=== PATIENT | female | born 1985 | race African-American/Black ===

== ENCOUNTER 2020-01-07 07:03 | Inpatient (IN) ==
[2020-01-07] MEDS ORDERED: LACTATED RINGERS 1,000 ML IV SCH ×2 (08:00→17:30)
[2020-01-07] MEDS ORDERED: CITRIC ACID/SODIUM CITRATE 30 ML UDCUP PO ONE (08:00)
[2020-01-07] MEDS ORDERED: ceFAZolin 3,000 MG in SYRINGE 1 EACH IV ONE (08:00)
[2020-01-07] MEDS ORDERED: FAMOTIDINE 20 MG/2 ML VIAL IV ONE (08:00)
[2020-01-07] MEDS ORDERED: OXYTOCIN 10 UNIT/ML VIAL IM ONE (08:05)
[2020-01-07] MEDS ORDERED: OXYTOCIN/LR 30 UNIT/1,000 ML BAG IV ONE (08:05)
[2020-01-07] MEDS ORDERED: ONDANSETRON 4 MG/2 ML VIAL IV PRN ×2 (08:07→17:19)
[2020-01-07 08:28] LABS: Basophils % 0.4 % (0.0-0.8); Eosinophils # 0.1 10*3/uL (0.0-0.87); Eosinophils % 1.2 % (0.00-10.9); Hematocrit 37.1 VOL% (35.7-47.0); Hemoglobin 11.5 GM/DL (12.0-16.0); Immature Granulocytes % 0.4 %; Immature Granulocytes Absolute 0.02 #; Lymphocytes # 1.6 10*3/uL (1.4-4.0); Lymphocytes % 28.4 % (21.3-54.2); Mean Corpuscular Volume 92.1 FL (87-102); Mean Platelet Volume 11.9 FL (9.6-12.0); Monocytes % 7.4 % (1.7-12.7); Neutrophils % 62.2 % (38.7-73.9); Platelet Count 172 T/CUMM (130-400); Red Blood Count 4.03 MC/CUMM (3.8-5.5); Red Cell Distribution Width 13.7 % (9.3-17.3); White Blood Count 5.7 T/CUMM (4-12)
[2020-01-07] MEDS ORDERED: TRANEXAMIC ACID 1,000 MG/10 ML VIAL ONE (08:40)
[2020-01-07] MEDS ORDERED: miSOPROStoL 200 MCG TABLET ONE (08:40)
[2020-01-07] MEDS ORDERED: CARBOPROST TROMETHAMINE 250 MCG/ML AMP IM ONE (08:41)
[2020-01-07] MEDS ORDERED: METHYLERGONOVINE 0.2 MG/1 ML AMP ONE (08:41)
[2020-01-07 08:44] LABS: INR 0.9; PT Patient Result 9.9 SECS (9.8-11.9); Partial Thromboplastin Time 25.4 SECS (23.9-33.8)
[2020-01-07 08:46] LABS: Eosinophils 1 % (0-10); Lymphocytes 36 % (20-55); Segmented Neutrophils 57 % (50-85); Total Cells Counted 100
[2020-01-07 08:47] LABS: Atypical Lymphocytes Few; Hypochromasia 1+; Microcytosis Slight; Platelet Estimate Adequate
[2020-01-07 09:01] LABS: Alanine Aminotransferase 16 U/L (13-56); Albumin 2.4 G/DL (3.4-5.0); Alkaline Phosphatase 74 U/L (45-117); Aspartate Amino Transferase 16 U/L (0-37); Bilirubin,Total < 0.39 MG/DL (0.2-1.0); Blood Urea Nitrogen 6 MG/DL (7-18); Calcium 9.2 MG/DL (8.5-10.1); Estimated Glom Filtration Rate 178 ML/MIN; Glucose 86 MG/DL (74-106); Osmolality,Calculated 273.5 MOS/KG (273-304); Total Protein 6.9 G/DL (6.4-8.3); Uric Acid 4.1 MG/DL (2.6-6.0)
[2020-01-07] MEDS ORDERED: MORPHINE 10 MG/10 ML VIAL ONE (15:00)
[2020-01-07] MEDS ORDERED: PHENYLEPHRINE 1 MG/10 ML SYRINGE IV ONE (15:01)
[2020-01-07] MEDS ORDERED: fentaNYL 100 MCG/2 ML VIAL ONE (15:01)
[2020-01-07] MEDS ORDERED: MIDAZOLAM 2 MG/2 ML VIAL ONE (15:02)
[2020-01-07] MEDS ORDERED: BUPIVACAINE SPINAL 0.75% 2 ML AMP SPINAL ONE (15:02)
[2020-01-07 15:29] LABS: Apearance,Urine CLEAR (Clear); Bilirubin,Urine Negative (Negative); Blood, Urine Negative (Negative); Glucose,Urine (UA) Negative (Negative); Ketones,Urine 80 mg/dL (Negative); Mucus,Urine Occasional /LPF (Occasional); Nitrite,Urine Negative (Negative); Protein,Urine Negative; RBC,Urine 7 /HPF (0-4); Squamous Epithelial Cell,Urine Occasional /HPF (0-10); Urine Color Yellow (Yellow); Urine Specific Gravity 1.029 (1.001-1.035); Urine Urobilinogen < 2.0 EU/DL (0.2-1.0); WBC,Urine <1 /HPF (0-6)
[2020-01-07 15:32] LABS: Cord Arterial Blood HCO3 21.1 MMOL/L
[2020-01-07 15:34] LABS: Cord Venous Blood HCO3 23.7 MMOL/L; Cord Venous Blood PCO2 41.2 MMHG
[2020-01-07] MEDS ORDERED: OXYTOCIN/LR 20 UNIT/1,000 ML BAG IV ONE ×2 (16:27→17:19)
[2020-01-07] MEDS ORDERED: IBUPROFEN 800 MG TABLET PO PRN (17:19)
[2020-01-07] MEDS ORDERED: RHO(D) IMMUNE GLOBULIN 300 MCG SYRINGE IM ONE (17:19)
[2020-01-07] MEDS ORDERED: ACETAMINOPHEN 325 MG TABLET PO PRN (17:19)
[2020-01-07] MEDS ORDERED: MEPERIDINE 50 MG/1 ML VIAL IV ONE (17:28)
[2020-01-07] MEDS ORDERED: ceFAZolin 1,000 MG in SYRINGE 1 EACH IV SCH (17:30)
[2020-01-07] MEDS: ceFAZolin 1,000 MG in SYRINGE 1 EACH IV SCH (20:55)
[2020-01-07] MEDS: DOCUSATE SODIUM 100 MG CAPSULE PO SCH (20:55)
[2020-01-07 21:24] LABS: Basophils % 0.3 % (0.0-0.8); Eosinophils # 0.1 10*3/uL (0.0-0.87); Eosinophils % 0.8 % (0.00-10.9); Hematocrit 36.3 VOL% (35.7-47.0); Hemoglobin 11.4 GM/DL (12.0-16.0); Immature Granulocytes % 0.5 %; Immature Granulocytes Absolute 0.05 #; Lymphocytes # 1.8 10*3/uL (1.4-4.0); Lymphocytes % 19.7 % (21.3-54.2); Mean Corpuscular HGB Conc 31.4 GM/DL (32-36); Mean Corpuscular Volume 92.6 FL (87-102); Mean Platelet Volume 11.3 FL (9.6-12.0); Monocytes % 6.6 % (1.7-12.7); Neutrophils % 72.1 % (38.7-73.9); Platelet Count 146 T/CUMM (130-400); Red Blood Count 3.92 MC/CUMM (3.8-5.5); Red Cell Distribution Width 13.6 % (9.3-17.3); White Blood Count 9.1 T/CUMM (4-12)
[2020-01-08 04:12] LABS: Platelet Estimate Adequate
[2020-01-08] MEDS: ceFAZolin 1,000 MG in SYRINGE 1 EACH IV SCH (05:32)
[2020-01-08 06:26] LABS: Basophils % 0.3 % (0.0-0.8); Eosinophils # 0.1 10*3/uL (0.0-0.87); Eosinophils % 1.3 % (0.00-10.9); Hematocrit 36.1 VOL% (35.7-47.0); Hemoglobin 11.2 GM/DL (12.0-16.0); Immature Granulocytes % 0.3 %; Immature Granulocytes Absolute 0.03 #; Lymphocytes # 1.6 10*3/uL (1.4-4.0); Lymphocytes % 18.1 % (21.3-54.2); Mean Corpuscular Volume 92.8 FL (87-102); Mean Platelet Volume 12.1 FL (9.6-12.0); Monocytes % 9.1 % (1.7-12.7); Neutrophils % 70.9 % (38.7-73.9); Platelet Count 162 T/CUMM (130-400); Red Blood Count 3.89 MC/CUMM (3.8-5.5); Red Cell Distribution Width 13.4 % (9.3-17.3); White Blood Count 8.7 T/CUMM (4-12)
[2020-01-08 06:49] LABS: Hypochromasia 1+
[2020-01-08 06:50] LABS: Microcytosis Slight; Platelet Estimate Adequate
[2020-01-08] MEDS ORDERED: oxyCODONE/ACETAMINOPHEN 5-325 MG TABLET PO PRN (07:32)
[2020-01-08] MEDS: METOCLOPRAMIDE 10 MG TABLET PO SCH ×2 (07:43→15:40)
[2020-01-08] MEDS: oxyCODONE/ACETAMINOPHEN 5-325 MG TABLET PO PRN ×3 (07:43→19:41)
[2020-01-08] MEDS: MULTIVITAMIN (PRENATAL) TABLET PO SCH (08:44)
[2020-01-08] MEDS: MAGNESIUM HYDROXIDE SUSP 30 ML UDCUP PO PRN (08:44)
[2020-01-08] MEDS: SIMETHICONE CHEW 80 MG TABLET PO PRN ×2 (08:44→19:41)
[2020-01-08] MEDS: DOCUSATE SODIUM 100 MG CAPSULE PO SCH ×3 (08:44→22:30)
[2020-01-08] MEDS ORDERED: diphenhydrAMINE CAP 25 MG CAPSULE PO PRN (10:22)
[2020-01-09] MEDS: METOCLOPRAMIDE 10 MG TABLET PO SCH ×2 (00:51→07:25)
[2020-01-09] MEDS: oxyCODONE/ACETAMINOPHEN 5-325 MG TABLET PO PRN ×3 (01:01→12:49)
[2020-01-09 07:19] VITALS: BP 120/70
[2020-01-09] MEDS: DOCUSATE SODIUM 100 MG CAPSULE PO SCH (07:25)
[2020-01-09] MEDS: SIMETHICONE CHEW 80 MG TABLET PO PRN (07:25)
[2020-01-09] MEDS: MULTIVITAMIN (PRENATAL) TABLET PO SCH (07:25)
[2020-01-09] MEDS: MAGNESIUM HYDROXIDE SUSP 30 ML UDCUP PO PRN (07:25)
[2020-01-09] MEDS ORDERED: DIPH/TET/ACEL PERT BOOSTER VACCINE 0.5 ML VIAL IM ONE (10:18)
== END 2020-01-09 14:00 | disposition home or self-care (01) | DRG 540 ==
LOC: N.LD 07:03 → N.OB 18:13
PROVIDERS: ADMIT Obstetrics & Gynecology; ATTEND Obstetrics & Gynecology